=== PATIENT | male | born 1995 | race African-American/Black ===

== ENCOUNTER 2017-08-17 16:51 | Emergency (ER) | payer SELFPAY ==
[~2017-08-17] VITALS: Ht 185.4 cm; Wt 100.0 kg
[2017-08-17] MEDS ORDERED: PB/HYOSCY/ATR/SCOP/LIDO/MAALOX 55 ML BOTTLE PO ONE (17:45)
[2017-08-17 18:36] VITALS: BP 135/72
== END 2017-08-17 19:35 | disposition home or self-care (01) ==
LOC: EMS 16:51
DX: T18.128A Food in esophagus causing other injury, initial encounter (principal); X58.XXXA Exposure to other specified factors, initial encounter; Y93.89 Activity, other specified; Y92.89 Other specified places as the place of occurrence of the external cause; Y99.8 Other external cause status
CPT/HCPCS: 70360; 71045; 99284; Z7610